=== PATIENT | female | born 1995 | race Caucasian/White ===

== ENCOUNTER 2022-07-16 05:26 | Emergency (ER) | payer MEDICAID, OTHER ==
[~2022-07-16] VITALS: Ht 162.6 cm; Wt 64.0 kg
[~2022-07-16 05:26] MED LIST: ALBU6.7H15 INH; P20 MT
[2022-07-16 05:40] VITALS: BP 125/69
== END 2022-07-16 07:08 | disposition left against medical advice (07) ==
LOC: ER 05:35
DX: R06.02 Shortness of breath (principal); Z53.21 Procedure and treatment not carried out due to patient leaving prior to being seen by health care provider
CPT/HCPCS: 99281

== ENCOUNTER 2023-08-14 13:55 | Emergency (ER) | payer MEDICAID, OTHER ==
[~2023-08-14] VITALS: Ht 162.6 cm; Wt 59.0 kg
[2023-08-14 14:11] VITALS: BP 112/72; PULSE 68; RESP 18; TEMP 98.9; O2SAT 98
[2023-08-14 15:26] LABS: CLARITY URINE CLEAR (CLEAR); COLOR URINE YELLOW (YELLOW); GLUCOSE URINE NEGATIVE (NEGATIVE); KETONES URINE NEGATIVE (NEGATIVE); LEUKOCYTE ESTERASE URINE NEGATIVE (NEGATIVE); NITRITE URINE NEGATIVE (NEGATIVE); OCCULT BLOOD URINE NEGATIVE (NEGATIVE); PROTEIN URINE NEGATIVE (NEGATIVE); SPECIFIC GRAVITY URINE 1.021 (1.005-1.030)
[2023-08-14] MEDS ORDERED: ACETAMINOPHEN 325MG TABLET PO ONE (15:30)
[2023-08-14] MEDS: CEFTRIAXONE SODIUM 500MG VIAL IM ONE (15:58)
[2023-08-14] MEDS: KETOROLAC 15MG/ML VIAL IM ONE (15:59)
[2023-08-14] MEDS ORDERED: DOXY100T2 MT (16:08)
[2023-08-14] MEDS ORDERED: METR-167 MT (16:08)
[2023-08-14] MEDS: LIDOCAINE HCL/PF 1% 10 MG/ML 5ML VIAL INFIL ONE (17:11)
[2023-08-17 04:07] LABS: CHLAMYDIA TRACHOMATIS NAA Negative (Negative); NEISSERIA GONORRHOEAE NAA Negative (Negative)
== END 2023-08-14 17:11 | disposition home or self-care (01) ==
LOC: ER 14:52
DX: A64 Unspecified sexually transmitted disease (principal); N73.0 Acute parametritis and pelvic cellulitis
CPT/HCPCS: 99284; 87491; 87591; 81003; 81025; 87210; 96372; J0696; J1885; J3490

== ENCOUNTER 2024-03-19 13:01 | Emergency (ER) | payer OTHER ==
[~2024-03-19] VITALS: Ht 165.1 cm; Wt 61.0 kg
[~2024-03-19 13:01] MED LIST changes: +DOXY100T2 MT; +METR-167 MT
[2024-03-19 13:03] VITALS: O2SAT 99
[2024-03-19 16:53] LABS: CLARITY URINE CLEAR (CLEAR); COLOR URINE YELLOW (YELLOW); GLUCOSE URINE NEGATIVE (NEGATIVE); KETONES URINE 1+ (NEGATIVE); LEUKOCYTE ESTERASE URINE NEGATIVE (NEGATIVE); NITRITE URINE NEGATIVE (NEGATIVE); OCCULT BLOOD URINE NEGATIVE (NEGATIVE); PROTEIN URINE TRACE (NEGATIVE); SPECIFIC GRAVITY URINE 1.021 (1.005-1.030)
[2024-03-19 17:08] LABS: *AMPHETAMINES SCREEN URINE NEGATIVE (NEGATIVE); *BARBITURATES SCREEN URINE NEGATIVE (NEGATIVE); *BENZODIAZEPINES SCREEN URINE NEGATIVE (NEGATIVE); *COCAINE SCREEN URINE NEGATIVE (NEGATIVE); BACTERIA URINE NONE SEEN; CANNABINOID URINE SCREEN PRESUMPTIVE POSITIVE (NEGATIVE); ECSTASY MDMA SCREEN URINE NEGATIVE (NEGATIVE); METHADONE URINE SCREEN NEGATIVE (NEGATIVE); OPIATES URINE SCREEN NEGATIVE (NEGATIVE); PHENCYCLIDINE URINE SCREEN NEGATIVE (NEGATIVE); RBC URINE 0-2 /hpf (0-2); SQUAMOUS EPITHELIAL CELL URINE FEW /lpf (RARE/1+); WBC URINE NONE SEEN /hpf (0-2)
[2024-03-19 17:34] LABS: BASOPHILS % 0.4 % (0.0-2.0); EOSINOPHILS % 0.4 % (0.0-5.0); HEMATOCRIT. 39.5 % (36.0-48.0); HEMOGLOBIN. 12.8 g/dL (12.0-16.0); LYMPHOCYTES % 25.1 % (20.0-50.0); MEAN CORPUSCULAR HEMOGLOBIN 31.9 pg (28.0-32.0); MEAN CORPUSCULAR HGB CONC 32.5 g/dL (31.0-37.0); MEAN CORPUSCULAR VOLUME 98.2 fL (81.0-99.0); MEAN PLATELET VOLUME 7.8 fl (7.4-10.4); MONOCYTES % 8.3 % (2.0-8.0); NEUTROPHILS % 65.8 % (40.0-76.0); PLATELET 189 x1000/uL (130-400); RED BLOOD CELL COUNT 4.03 mill/uL (4.2-5.4); WHITE BLOOD COUNT 7.6 x1000/uL (4.5-11.0)
[2024-03-19 17:42] LABS: CHLORIDE 108 mEq/L (98-107); SODIUM 139 mEq/L (136-145)
[2024-03-19 17:43] LABS: CALCIUM 9.5 mg/dL (8.7-10.4); CARBON DIOXIDE 24 mEq/L (21-32)
[2024-03-19 17:48] LABS: CREATININE 0.8 mg/dL (0.6-1.0); GLUCOSE 89 mg/dL (70-105); UREA NITROGEN BLOOD 17 mg/dL (9-23)
[2024-03-19 17:49] LABS: ETHANOL BLOOD < 10 mg/dL (<10); HCG SCREEN NEGATIVE
[2024-03-19 17:50] LABS: ACETAMINOPHEN < 2 ug/mL (10-30)
[2024-03-19] MEDS: OLANZAPINE 5MG TABLET PO NR (23:15)
[2024-03-20] MEDS: LORAZEPAM 2MG/ML INJ IM STA (10:05)
[2024-03-20] MEDS: HYDROXYZINE 25MG TABLET PO PRN (17:36)
[2024-03-20] MEDS: LORAZEPAM 1MG TABLET PO ONE (21:52)
[2024-03-20 22:06] VITALS: BP 118/75; PULSE 106; RESP 18; TEMP 36.78072; O2SAT 100
== END 2024-03-20 22:41 ==
LOC: ER 13:22
DX: R45.851 Suicidal ideations (principal); F12.10 Cannabis abuse, uncomplicated; Z20.822 Contact with and (suspected) exposure to COVID-19; Z98.890 Other specified postprocedural states
CPT/HCPCS: 80305; 80048; 81003; 80307; 80329; 80320; 84703; 85025; 87804 ×2; 36415; 99285; 87426; 96372; J2060; G0480